=== PATIENT | female | born 1980 | race Caucasian/White ===

== ENCOUNTER 2021-03-05 20:45 | Emergency (ER) | payer MEDICAID, SELFPAY ==
[2021-03-05 20:58] VITALS: BP 160/104; PULSE 85; RESP 18; TEMP 37; O2SAT 99
--- NOTE | 2021-03-05 21:27 | ED.GENADUL_ITS ---
Discharge Plan Disposition Patient Disposition: HOME Condition: Stable Discharge Details Clinical Impression: Infected dental caries Primary Care Provider: Malka Zavala ED Provider: Barbara Shay Home Meds and New Rx's Prescriptions: New penicillin V potassium 250 mg/5 mL recon soln 500 mg PO QID 7 Days Qty: 280 RF: 0 Discharge Instructions Instructions: Dental Caries (ED) Additional Instructions: Drink plenty of fluids and get plenty of rest. Alternate tylenol and motrin as needed and directed for pain. You are being sent home with a pain medication called tramadol. Take this as needed and directed for pain. A prescription for antibiotics has been sent electronically to your pharmacy. Take this as directed until finished. Call your dentist tomorrow to see if they schedule you for an earlier appointment. Discharge Data Discharge Physician: Barbara Shay Medical Decision Making 40-year-old female presents with left upper dental pain for the past several days. She has dental caries throughout. She has tenderness palpation to the left upper most posterior tooth with surrounding mild to moderate mucosal edema and erythema but no abscess noted. Patient appears significantly uncomfortable but nontoxic. No drooling, trismus, or submandibular swelling. Will give antibiotics for potential developing dental infection. She states she cannot swallow pills. She was given a dose of Pen-Vee K suspension here and prescription sent electronically to her pharmacy. She was also given a dose of tramadol here and tabs to go. She was advised to call her dentist tomorrow to see if they can fit her in for an earlier appointment. Usual and customary return precautions given prior to discharge. Medical Records Medical records reviewed: Yes I reviewed the patient's medical records. HPI General Mode of arrival: ambulatory . Date/Time Provider Initiated Documentation: 03/05/21 21:27 . Limitations to Documentation: no limitations . Information obtained by: patient . HPI Narrative: Patient is a 40-year-old female who presents to the ED with complaint of left upper dental pain for the past several days. She states she fractured the tooth a few years ago but has been bothering her for the past few days. She has an appointment with [facility] next week. She has been trying [id number] pain remedies without relief. She denies any known fever, difficulty swallowing or breathing. Related Data Home Medications Medication Instructions Recorded Confirmed penicillin V potassium 500 mg PO QID 7 Days #280 ml 03/05/21 Previous Rx's Medication Instructions Recorded penicillin V potassium 500 mg PO QID 7 Days #280 ml 03/05/21 Allergies Allergy/AdvReac Type Severity Reaction Status Date / Time No Known Allergies Allergy Unverified 03/05/21 21:00 General Stated Complaint: DentalOral ELFEGO: 4 Review of Systems All systems reviewed & are unremarkable except as noted in HPI and below Constitutional Constitutional: Reports as per HPI, Denies chills and Denies fever(s) Eyes Eyes: Denies blurry vision ENT Ears, Nose, Mouth, and Throat: Reports dental pain, Denies dizziness, Denies sore throat and Denies throat swelling Cardiovascular Cardiovascular: Denies chest pain and Denies dyspnea Respiratory Respiratory: Denies cough and Denies dyspnea Gastrointestinal Gastrointestinal: Denies abdominal pain, Denies diarrhea and Denies vomiting Genitourinary Genitourinary: Denies hematuria and Denies dysuria Musculoskeletal Musculoskeletal: Denies back pain and Denies numbness Integumentary/Breasts Skin/Breast: Denies lesions and Denies rash Neurologic Neurologic: Denies dizziness, Denies localized weakness and Denies numbness Allergic/Immunologic Allergic/Immunologic: Denies throat swelling [facility] Surgical History (Updated 03/05/21 @ 22:17 by Barbara Shay DO) History of bilateral tubal ligation Social History Smoking/Tobacco Use Status: Never Smoking risk assessment performed?: Yes Alcohol Intake: never Drug use: Never Substance use type: does not use Do you feel safe at home: Yes Do you feel safe in your relationship?: Yes Exam Const General: cooperative, healthy appearing and no acute distress [facility] Head: normal to inspection Ears: hearing grossly normal bilaterally and external ears normal General nose exam: external nose normal Mouth: oral mucosae normal, no drooling and no trismus Teeth and gingiva: caries and other Teeth image: 1. Left upper dental tenderness. There is mild to moderate edema and erythema of the mucosa surrounding L upper posterior teeth. No dental abscess noted. Throat: posterior oropharynx normal Eyes General: appearance normal, both eyes and all related structures Neck Neck: normal visual inspection, no meningeal signs, trachea midline, supple, no anterior neck swelling and No submandibular swelling Resp Effort & Inspection: normal respiratory effort and able to speak in complete sentences Cardio Rate: regular rate Skin General skin exam: no rashes or lesions noted Neuro General: patient alert, patient awake and patient oriented x3 Motor: muscle tone normal throughout Psych Appearance: grossly normal Affect: normal affect Course Vital Signs Vital signs: Vital Signs Temperature 98.6 F 03/05/21 20:58 Pulse 85 03/05/21 20:58 Respiratory Rate 18 03/05/21 20:58 Blood Pressure 160/104 H 03/05/21 20:58 Pulse Oximetry 99 03/05/21 20:58 Temperature 98.6 F 03/05/21 20:58 Temperature Source Skin 03/05/21 20:58 Pulse 85 03/05/21 20:58 Respiratory Rate 18 03/05/21 20:58 Respiratory Effort Non-Labored 03/05/21 21:00 Blood Pressure 160/104 H 03/05/21 20:58 Pulse Oximetry 99 03/05/21 20:58 Oxygen Delivery Method Room Air 03/05/21 20:58 Oxygen Flow Rate 0 03/05/21 20:58 Pain Level 10 03/05/21 21:00
[2021-03-05] MEDS: traMADol 50 MG TAB PO (22:17)
== END 2021-03-05 23:28 | disposition home or self-care (01) ==
PROVIDERS: Emergency Provider Physician Assistant; PCP Family Medicine
DX: K04.7 Periapical abscess without sinus (principal)
CPT/HCPCS: 99283

== ENCOUNTER 2021-04-02 16:15 | Emergency (ER) | payer MEDICAID, SELFPAY ==
[2021-04-02 16:19] VITALS: BP 135/78; PULSE 89; RESP 16; TEMP 36.7; O2SAT 98
--- NOTE | 2021-04-02 16:36 | ED.GENADUL_ITS ---
Discharge Plan Disposition Patient Disposition: HOME Condition: Stable Discharge Details Clinical Impression: Infected dental caries Primary Care Provider: Malka Zavala ED Provider: Charo Mao Home Meds and New Rx's Prescriptions: New penicillin V potassium 500 mg tablet 500 mg PO QID 7 Days Qty: 28 RF: 0 Discharge Instructions Instructions: Dental Caries (ED) Additional Instructions: I am concerned that you have a recurrence of dental infection associated with your cavity. Please encourage hydration. Tylenol and/or ibuprofen as needed for discomfort. Please take the antibiotics as prescribed. Even if symptoms improve, please take the entire course. Please call local dentist to schedule follow-up appointment for definitive care. I am concerned that without definitive care your infection will likely return. If you develop increased swelling, fevers chills, radiation of pain or other new/worsening symptoms seek care urgently once again. Attached is a list of local dentist, in particular [facility] is excepting new patients. Referrals: Malka Zavala MD [Primary Care Provider] - Medical Decision Making Patient is a pleasant 40-year-old female presenting today with chief complaint of left lower dental pain. States that she began having some swelling yesterday. Was not having large amount of pain yesterday. However, woke today with increased pain, particularly with palpation, and swelling to the left lower side of her jaw. She denies any swelling, shortness of breath. No fevers or chills. States that it feels similar to when she was here recently with dental infection. Patient has not yet followed up with dentist. On exam, patient appears nontoxic. She does have some swelling along the left lower jaw. No erythema or fluctuance is noted. Tender to palpation. In the posterior left lower dentition, patient has 1 tooth and extracted in the posterior 1 to that, around the #17 tooth, is concerning for caries. On the buccal side, patient does have swelling and erythema. No area of fluctuance to suggest an abscess. No submandibular swelling, normal posterior oropharynx. No a ppreciable lymphadenopathy. Concern the patient has recurrence of her dental caries and dental infection. Advised that she will need definitive care with a dentist. States she has not had to take pills. Did well with penicillin VK last time. Encourage hydration, Tylenol and/or ibuprofen as needed for discomfort. List of local dentist was given. Return precautions were discussed. All of her questions and concerns were addressed and she is agreement this plan. HPI General Mode of arrival: ambulatory . Date/Time Provider Initiated Documentation: 04/02/21 16:26 . Limitations to Documentation: no limitations . Information obtained by: patient and RN notes reviewed . History of Present Illness 40 year old F presents to the emergency department with the chief complaint of left lower dental pain and swelling, described as moderate and similar to prior episodes, Quality is described as aching, and is localized to the mouth. Patient reports no radiation. Patient started experiencing this day(s) (1) and it has been constant. Immobilization improves symptom(s), Movement worsens symptoms (and palpation) . Patient notes no other symptoms.. Patient did receive the following treatments prior to arrival, none Related Data Home Medications Medication Instructions Recorded Confirmed penicillin V potassium 500 mg PO QID 7 Days #28 tab 04/02/21 Previous Rx's Medication Instructions Recorded penicillin V potassium 500 mg PO QID 7 Days #28 tab 04/02/21 Allergies Allergy/AdvReac Type Severity Reaction Status Date / Time acetaminophen [From Vicodin] Allergy Unverified 04/02/21 16:23 hydrocodone [From Vicodin] Allergy Unverified 04/02/21 16:23 General Stated Complaint: DentalOral ELFEGO: 5 Review of Systems Constitutional Constitutional: Reports as per HPI, Denies chills, Denies fatigue, Denies fever(s) and Denies headache(s) ENT Ears, Nose, Mouth, and Throat: Reports as per HPI, Reports dental pain, Denies dysphagia, Denies otalgia, Reports facial pain, Denies headache(s), Denies hoarseness, Denies odynophagia and Denies sore throat Respiratory Respiratory: Reports as per HPI and Denies cough Gastrointestinal Gastrointestinal: Reports as per HPI, Denies dysphagia and Denies odynophagia Integumentary/Breasts Skin/Breast: Reports as per HPI, Denies erythema, Denies rash and Denies skin pain Neurologic Neurologic: Reports as per HPI and Denies headache(s) Endocrine Endocrine: Denies fatigue [facility] Active Problem List (Updated 04/02/21 @ 16:38 by CASTILLO Baca) Infected dental caries (Acute) Surgical History History of bilateral tubal ligation Social History Smoking/Tobacco Use Status: Never Smoking risk assessment performed?: Yes Alcohol Intake: never Drug use: Never Substance use type: does not use Do you feel safe at home: Yes Do you feel safe in your relationship?: Yes Exam Const General: cooperative, healthy appearing, comfortable, no acute distress, well developed and well groomed Nutritional Appearance: average body habitus and well nourished Orientation: alert and awake [facility] Head: normal to inspection, normocephalic and atraumatic Ears: hearing grossly normal bilaterally, external ears normal and TM normal on the left General nose exam: external nose normal and nares normal Face and sinus: sinuses nontender and face asymmetric (swelling left lower jaw. No erythema, no fluctuance) Mouth: oral mucosae normal, lip normal, tongue normal, no muffled voice, no trismus and No restricted motion Teeth and gingiva: caries (#17, area of pain, swelling, redness along bucal side. No fluctuance) Throat: posterior oropharynx normal, tonsils normal and uvula midline Eyes General: appearance normal, both eyes and all related structures Neck Neck: normal visual inspection, full ROM, no lymphadenopathy, supple and no anterior neck swelling Resp Effort & Inspection: normal respiratory effort, able to speak in complete sentences and no respiratory distress Skin General skin exam: no rashes or lesions noted Trauma: no lacerations or abrasions Neuro General: patient alert and patient awake Cognition: normal cognition Speech: speech normal Gait: normal gait Psych Appearance: grossly normal and well kempt Mental Status: mental status grossly normal Speech and Movement: speech and movement normal Course Vital Signs Vital signs: Vital Signs Temperature 36.7 C 04/02/21 16:19 Pulse 89 04/02/21 16:19 Respiratory Rate 16 04/02/21 16:19 Blood Pressure 135/78 04/02/21 16:19 Pulse Oximetry 98 04/02/21 16:19 Temperature 36.7 C 04/02/21 16:19 Temperature Source Skin 04/02/21 16:19 Pulse 89 04/02/21 16:19 Respiratory Rate 16 04/02/21 16:19 Respiratory Effort 04/02/21 16:24 Blood Pressure 135/78 04/02/21 16:19 Blood Pressure Position Sitting 04/02/21 16:19 Pulse Oximetry 98 04/02/21 16:19 Oxygen Delivery Method Room Air 04/02/21 16:19 Oxygen Flow Rate 0 04/02/21 16:19 Pain Level 0 04/02/21 16:19 Comment 04/02/21 16:19
== END 2021-04-02 16:50 | disposition home or self-care (01) ==
LOC: ER 17:57
PROVIDERS: Emergency Provider Physician Assistant; PCP Family Medicine
DX: K04.7 Periapical abscess without sinus (principal); K02.9 Dental caries, unspecified
CPT/HCPCS: 99283

== ENCOUNTER 2021-09-11 08:37 | Emergency (ER) | payer MEDICAID, SELFPAY ==
[2021-09-11 09:12] VITALS: BP 135/80; PULSE 94; RESP 18; TEMP 37.3; O2SAT 100
--- NOTE | 2021-09-11 09:39 | ED.GENADUL_ITS ---
Discharge Plan Disposition Patient Disposition: HOME Condition: Stable Discharge Details Clinical Impression: Infected dental caries Primary Care Provider: Malka Zavala ED Provider: Cedric Burr Home Meds and New Rx's Prescriptions: Continued penicillin V potassium 500 mg tablet 500 mg PO QID 7 Days Qty: 28 0RF Discharge Instructions Instructions: Dental Caries (ED) Additional Instructions: At this time you have a dental infection of your left lower molar. It is important that you take the prescribed antibiotics for the full 7 days and please contact the dentist for follow-up after your antibiotics have finished unless directed otherwise by dental office. It will be important for you to discuss with them potential removal of the infected tooth that has significant decay and high reoccurrence of infection. You may continue to use [id number] pain medication as needed for discomfort and if not improving in the next 48 hours or have any significant worsening of symptoms as discussed please feel free to return to the emergency department. Discharge Data Discharge Date/Time-TO BE ENTERED AT DEPARTURE: 09/11/21 09:50 Medical Decision Making #17 Infected without signs of abscess, no signs of deep neck space infection ( Retropharyngeal abscess, Rishi's angina, Parapharyngeal space infection, Peritonsillar Abscess ([facility] [employer])) or Epiglottitis. Pt non toxic and stable. Patient placed on antibiotics and encouraged to follow-up with primary care and dental provider for reassessment. After discussion of diagnosis and plan of care patient has no further needs, questions, or concerns and states clear understanding to return to the emergency department for any worsening symptoms. HPI General Mode of arrival: ambulatory . Date/Time Provider Initiated Documentation: 09/11/21 09:23 . Limitations to Documentation: no limitations . Information obtained by: patient, RN notes reviewed and old records reviewed . History of Present Illness 40 year old F presents to the emergency department with the chief complaint of Dental pain/facial sweling, described as moderate, with intensity rated at 6. Quality is described as sharp, and is localized to the mouth. Patient reports no radiation. Patient started experiencing this day(s) (1) and it has been constant. improves with No relieving factors improve symptom(s), Patient notes no other symptoms.. Patient did receive the following treatments prior to arrival, NSAID Related Data Home Medications Medication Instructions Recorded Confirmed penicillin V potassium 500 mg 500 mg PO QID 7 Days #28 tab 09/11/21 tablet Previous Rx's Medication Instructions Recorded penicillin V potassium 500 mg 500 mg PO QID 7 Days #28 tab 09/11/21 tablet Allergies Allergy/AdvReac Type Severity Reaction Status Date / Time acetaminophen [From Vicodin] Allergy Unverified 04/02/21 16:23 hydrocodone [From Vicodin] Allergy Unverified 04/02/21 16:23 General Stated Complaint: DentalOral ELFEGO: 4 Review of Systems Constitutional Constitutional: Denies chills and Denies fever(s) ENT Ears, Nose, Mouth, and Throat: Reports as per HPI, Denies change in voice, Rep orts dental pain, Denies dysphagia, Denies throat swelling and Denies tongue swelling Cardiovascular Cardiovascular: Denies chest pain and Denies dyspnea Respiratory Respiratory: Denies dyspnea, Denies stridor and Denies wheezing Gastrointestinal Gastrointestinal: Denies abdominal pain, Denies dysphagia, Denies nausea and Denies vomiting Integumentary/Breasts Skin/Breast: Denies rash Allergic/Immunologic Allergic/Immunologic: Denies throat swelling, Denies tongue swelling and Denies wheezing PFSH All Active Problems Infected dental caries (Acute) Surgical History History of bilateral tubal ligation Social History Smoking/Tobacco Use Status: Never Smoking risk assessment performed?: Yes Alcohol Intake: never Drug use: Never Substance use type: does not use Do you feel safe at home: Yes Do you feel safe in your relationship?: Yes Exam Const General: cooperative Orientation: alert, awake and oriented x3 Limitations: mental status not altered [facility] [place] Head: normal to inspection, normocephalic and atraumatic Ears: hearing grossly normal bilaterally, normal mastoids bilaterally and no periauricular adenopathy General nose exam: external nose normal Mouth: oropharynx normal, no drooling, no muffled voice, normal tongue and no trismus Teeth and gingiva: caries, poor dentition and other (Dental decay #17 with erythema surrounding the base of the tooth) Throat: posterior oropharynx normal, tonsils normal and uvula midline Eyes General: appearance normal, both eyes and all related structures Pupils: PERRL Neck Neck: normal visual inspection, full ROM, no lymphadenopathy, no meningeal signs, trachea midline, supple, no anterior neck swelling and no midline deformity Resp Effort & Inspection: normal respiratory effort and able to speak in complete sentences Course Vital Signs Vital signs: Vital Signs Temperature 37.3 C 09/11/21 09:12 Pulse 94 H 09/11/21 09:12 Respiratory Rate 18 09/11/21 09:12 Blood Pressure 135/80 09/11/21 09:12 Pulse Oximetry 100 09/11/21 09:12 Temperature 37.3 C 09/11/21 09:12 Temperature Source Temporal Artery Scan 09/11/21 09:12 Pulse 94 H 09/11/21 09:12 Respiratory Rate 18 09/11/21 09:12 Blood Pressure 135/80 09/11/21 09:12 Blood Pressure Position Sitting 09/11/21 09:12 Pulse Oximetry 100 09/11/21 09:12 Oxygen Delivery Method Room Air 09/11/21 09:12 Oxygen Flow Rate 0 09/11/21 09:12
== END 2021-09-11 09:50 | disposition home or self-care (01) ==
PROVIDERS: Emergency Provider Nurse Practitioner Family; PCP Family Medicine
DX: K04.7 Periapical abscess without sinus (principal)
CPT/HCPCS: 99283

== ENCOUNTER 2022-04-20 15:05 | Emergency (ER) | payer MEDICAID, SELFPAY ==
[2022-04-20 15:14] VITALS: BP 129/82; PULSE 99; RESP 18; TEMP 36.9; O2SAT 97
--- NOTE | 2022-04-20 15:46 | ED.GENADUL_ITS ---
Discharge Plan Disposition Patient Disposition: Home Condition: Improving Discharge Details Chief Complaint: RespSymp Clinical Impression: COVID-19 Primary Care Provider: Malka Zavala ED Provider: Oscar Alvarez Discharge Instructions Instructions: Viral Syndrome (ED) Additional Instructions: Please follow-up with your primary care physician. Stand Alone Forms: Work Release Medical Decision Making 41-year-old female recently tested positive for COVID, has been ill for approximately 1 week body aches and dry cough. 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 Lungs clear bilaterally hemodynamically stable. Will dose dexamethasone for anti-inflammatory purposes. Given home care instructions and return precautions. Clinically stable low suspicion for superimposed bacterial pneumonia Sign Out No HPI General Date/Time Provider Initiated Documentation: 04/20/22 15:29 . HPI Narrative: 41-year-old female presents with body aches and dry cough over the past several days, tested positive for COVID. Related Data Allergies Allergy/AdvReac Type Severity Reaction Status Date / Time acetaminophen [From Vicodin] Allergy Unverified 04/20/22 15:16 hydrocodone [From Vicodin] Allergy Unverified 04/20/22 15:16 General Stated Complaint: RespSymp ELFEGO: 4 Review of Systems Narrative: Review of Systems Constitutional: Body aches Eyes: negative ENT: negative Cardiovascular: negative Respiratory: Cough Gastrointestinal: negative : negative Musculoskeletal: negative Skin: negative Neurologic: negative Psych: negative PFSH All Active Problems (Updated 04/20/22 @ 15:49 by Oscar Alvarez MD) COVID-19 (Acute) Infected dental caries (Acute) Surgical History History of bilateral tubal ligation Social History Smoking/Tobacco Use Status: Never Smoking risk assessment performed?: Yes Alcohol Intake: never Drug use: Never Substance use type: does not use Do you feel safe at home: Yes Do you feel safe in your relationship?: Yes Exam Narrative Exam Narrative: Physical Examination General: alert, awake, cooperative, resting comfortably, no acute distress HEENT: normocephalic, atraumatic; PERRL, EOM intact, conjunctiva normal; no nasal discharge; moist mucous membranes, oral and pharyngeal mucosa normal, tolerating secretions Neck: supple, trachea midline; full ROM Chest: normal to inspection Respiratory: normal respiratory effort, speaking in full sentences, clear to auscultation, no wheezing, rales or rhonchi Cardiac: regular rate, regular rhythm, S1S2 intact, no murmurs rubs or gallops GI: abdomen soft, non-tender, non-distended; no palpable mass or hepatosplenomegaly Skin: no lesions, rashes or trauma appreciated Neuro: AAOx3, normal speech, moving all extremities Psych: Appropriate mood and affect Course Vital Signs Vital signs: Vital Signs Temperature 36.9 C 04/20/22 15:14 Pulse 99 H 04/20/22 15:14 Respiratory Rate 18 04/20/22 15:14 Blood Pressure 129/82 04/20/22 15:14 Pulse Oximetry 97 04/20/22 15:14 Temperature 36.9 C 04/20/22 15:14 Pulse 99 H 04/20/22 15:14 Respiratory Rate 18 04/20/22 15:14 Respiratory Effort Non-Labored 04/20/22 15:17 Respiratory Depth Normal 04/20/22 15:17 Blood Pressure 129/82 04/20/22 15:14 Blood Pressure Position Sitting 04/20/22 15:14 Pulse Oximetry 97 04/20/22 15:14 Oxygen Delivery Method Room Air 04/20/22 15:14 Oxygen Flow Rate 0 04/20/22 15:14
[2022-04-20] MEDS: Dexamethasone 10 MG/ML VIAL IVP (16:09)
== END 2022-04-20 16:36 | disposition home or self-care (01) ==
PROVIDERS: Emergency Provider Emergency Medicine; PCP Family Medicine
DX: U07.1 COVID-19 (principal)
CPT/HCPCS: 99283; J1100

== ENCOUNTER 2022-04-27 14:44 | Emergency (ER) | payer MEDICAID, SELFPAY ==
[2022-04-27 15:18] VITALS: BP 137/94; PULSE 97; RESP 16; O2SAT 99
--- NOTE | 2022-04-27 17:15 | DI.RAD_ITS ---
Exam(s) XR CHEST 2V PA LATERAL EXAM: XR CHEST 2V PA LATERAL CLINICAL HISTORY: cough TECHNIQUE: 2D digital imaging was performed of the chest. Two images were obtained. PA and lateral views were obtained. COMPARISON: No exams were available for comparison FINDINGS: MEDIASTINUM: Normal. HEART: Normal. PULMONARY VASCULATURE: Normal. LUNGS: Clear. PLEURAL SPACE: No pleural effusion or pneumothorax. BONE:Within normal limits for the patient's age. OTHER FINDINGS:Normal. IMPRESSION: No acute pulmonary findings. DATA REPOSITORY: RADIATION DOSE DELIVERED:
[2022-04-27 17:18] VITALS: BP 115/70; PULSE 80; RESP 16; TEMP 36.8; O2SAT 98
--- NOTE | 2022-04-27 17:59 | DI.VRAD_ITS ---
PROCEDURE INFORMATION: Exam: XR Chest Exam date and time: 04/27/2022 5:41 PM Age: 41 years old Clinical indication: Other: Cough TECHNIQUE: Imaging protocol: Radiologic exam of the chest. Views: 2 views. COMPARISON: No relevant prior studies available. FINDINGS: Lungs: Unremarkable. No consolidation. Pleural spaces: Unremarkable. No pleural effusion. No pneumothorax. Heart/Mediastinum: Unremarkable. No cardiomegaly. Bones/joints: Anterior cervical fusion . No acute fracture IMPRESSION: No acute process Dictated and Authenticated by: Kofi Solomon MD. Ordering:NOEL Steele MD
--- NOTE | 2022-04-27 18:26 | ED.GENADUL_ITS ---
Discharge Plan Disposition Patient Disposition: Home Condition: Stable Discharge Details Clinical Impression: Bronchitis due to 2019-nCoV Primary Care Provider: Malka Zavala ED Provider: Cedric Burr Home Meds and New Rx's Prescriptions: New benzonatate 200 mg capsule 200 mg PO TID PRN (Reason: cough) Qty: 30 0RF Proair Digihaler 90 mcg/actuation aero powdr breath act w/sensor 90 mcg inhalation Q4H PRN (Reason: shortness of breath or wheezing) Qty: 1 0RF prednisone 20 mg tablet 40 mg PO DAILY Qty: 8 0RF Discharge Instructions Instructions: Acute Bronchitis (ED) Additional Instructions: At this time I do not feel that you have pneumonia or need antibiotic therapy. It is common after viral illness to have a prolonged cough. If you develop a new fever, worsening symptoms, or lack of improvement over the next week please follow-up with primary care provider or if emergent findings are present return to the emergency department. Please start the steroid tomorrow morning as it may cause insomnia and take medications as prescribed. Stand Alone Forms: Work Release Referrals: Malka Zavala MD [Primary Care Provider] - 1 week (If not improving) Discharge Data Discharge Date/Time-TO BE ENTERED AT DEPARTURE: 04/27/22 18:51 Medical Decision Making covid x 2 weeks with continued cough and not improving. No fever chills no productive cough. Continued malaise. Exam is unremarkable. Given continued symptoms we will perform chest x-ray. Differential diagnosis to include pneumonia versus bronchitis. Reviewed chest x-ray which is negative. We will treat patient with steroid, albuterol and Tessalon along with follow-up precautions if not improving in the next week. Imaging Data Radiologic Study: Attestation: I personally reviewed and interpreted this imaging study as follows: Imaging: X-Ray Radiologist's impression: Exam: XR Chest Exam date and time: 04/27/2022 5:41 PM Age: 41 years old Clinical indication: Other: Cough TECHNIQUE: Imaging protocol: Radiologic exam of the chest. Views: 2 views. COMPARISON: No relevant prior studies available. FINDINGS: Lungs: Unremarkable. No consolidation. Pleural spaces: Unremarkable. No pleural effusion. No pneumothorax. Heart/Mediastinum: Unremarkable. No cardiomegaly. Bones/joints: Anterior cervical fusion . No acute fracture IMPRESSION: No acute process Sign Out No HPI General Mode of arrival: ambulatory . Date/Time Provider Initiated Documentation: 04/27/22 15:46 . Limitations to Documentation: no limitations . Information obtained by: patient and RN notes reviewed . History of Present Illness 41 year old F presents to the emergency department with the chief complaint of cough, described as moderate, Quality is described as aching, and is localized to the chest. Patient started experiencing this week(s) (2) and it has been constant. No relieving factors improve symptom(s), No exacerbating factors reported . Patient notes cough; denies fever/chills and shortness of breath. Patient did receive the following treatments prior to arrival, none Related Data Home Medications Medication Instructions Recorded Confirmed albuterol sulfate 90 mcg/actuation 90 mcg inhalation Q4H PRN 04/27/22 breath activated powder shortness of breath or wheezing #1 inhaler,sensor (Proair Digihaler) ea benzonatate 200 mg capsule 200 mg PO TID PRN cough #30 caps 04/27/22 prednisone 20 mg tablet 40 mg PO DAILY #8 tabs 04/27/22 Previous Rx's Medication Instructions Recorded albuterol sulfate 90 mcg/actuation 90 mcg inhalation Q4H PRN 04/27/22 breath activated powder shortness of breath or wheezing #1 inhaler,sensor (Proair Digihaler) ea benzonatate 200 mg capsule 200 mg PO TID PRN cough #30 caps 04/27/22 prednisone 20 mg tablet 40 mg PO DAILY #8 tabs 04/27/22 Allergies Allergy/AdvReac Type Severity Reaction Status Date / Time acetaminophen [From Vicodin] Allergy Unverified 04/27/22 15:21 hydrocodone [From Vicodin] Allergy Unverified 04/27/22 15:21 General Stated Complaint: Recheck ELFEGO: 5 Review of Systems Constitutional Constitutional: Denies body ache(s), Denies chills, Denies fever(s), Denies headache(s) and Reports malaise Eyes Eyes: Denies eye discharge ENT Ears, Nose, Mouth, and Throat: Reports as per HPI, Denies ear discharge, Denies otalgia, Denies headache(s), Reports nasal congestion, Denies nasal discharge, Denies neck pain, Denies sore throat and Denies throat swelling Cardiovascular Cardiovascular: Denies chest pain and Denies dyspnea Respiratory Respiratory: Denies chest congestion, Reports cough, Reports pain with cough and Denies dyspnea Musculoskeletal Musculoskeletal: Denies joint swelling and Denies neck pain Integumentary/Breasts Skin/Breast: Denies rash Neurologic Neurologic: Denies headache(s) Allergic/Immunologic Allergic/Immunologic: Denies throat swelling PFSH All Active Problems (Updated 04/27/22 @ 18:28 by Cedric Burr NP) COVID-19 (Acute) Bronchitis due to 2019-nCoV (Acute) Infected dental caries (Acute) Surgical History History of bilateral tubal ligation Social History Smoking/Tobacco Use Status: Never Smoking risk assessment performed?: Yes Alcohol Intake: never Drug use: Never Substance use type: does not use Do you feel safe at home: Yes Do you feel safe in your relationship?: Yes Exam Const General: cooperative, comfortable and no acute distress Orientation: alert and awake HENNC Head: normal to inspection, normocephalic and atraumatic Ears: hearing grossly normal bilaterally and TM's normal bilaterally General nose exam: external nose normal Face and sinus: no erythema Mouth: oral mucosae normal, no drooling, no muffled voice and no trismus Throat: posterior oropharynx normal Neck Neck: normal visual inspection, full ROM, no lymphadenopathy, no meningeal signs, trachea midline and supple Resp Effort & Inspection: normal respiratory effort, able to speak in complete sentences and cough Quality of cough: dry Auscultation: clear to auscultation bilaterally Cardio Rate: regular rate Rhythm: regular rhythm Heart Sounds: S1 normal, S2 normal, normal S1 and S2, no click, no gallops, no murmurs and no rubs Skin General skin exam: no rashes or lesions noted and dry skin (warm) Neuro General: patient alert, patient awake, patient oriented x3, gait normal and moves all extremities Cognition: normal cognition Speech: speech normal Course Vital Signs Vital signs: Vital Signs Pulse 97 H 04/27/22 15:18 Respiratory Rate 16 04/27/22 15:18 Blood Pressure 137/94 H 04/27/22 15:18 Pulse Oximetry 99 04/27/22 15:18 Temperature 36.8 C 04/27/22 17:18 Temperature Source Oral 04/27/22 17:18 Pulse 80 04/27/22 17:18 Respiratory Rate 16 04/27/22 17:18 Respiratory Effort 04/27/22 17:50 Respiratory Depth Normal 04/27/22 17:50 Blood Pressure 115/70 04/27/22 17:18 Blood Pressure Position Sitting 04/27/22 15:18 Pulse Oximetry 98 04/27/22 17:18 Oxygen Delivery Method Room Air 04/27/22 17:18 Oxygen Flow Rate 0 04/27/22 17:18 Pain Level 0 04/27/22 15:18
[2022-04-27 18:53] VITALS: BP 121/80; PULSE 85; RESP 16; TEMP 36.5; O2SAT 99
== END 2022-04-27 18:51 | disposition home or self-care (01) ==
PROVIDERS: Emergency Provider Nurse Practitioner Family; PCP Family Medicine
DX: U07.1 COVID-19 (principal); J40 Bronchitis, not specified as acute or chronic
CPT/HCPCS: 99283; 71046; 99284

== ENCOUNTER 2022-11-21 21:01 | Emergency (ER) | payer MEDICAID, SELFPAY ==
[2022-11-21 21:04] VITALS: BP 127/81; PULSE 77; RESP 20; TEMP 36.6; O2SAT 100
[2022-11-21] MEDS: Ondansetron O.D.T. 4 MG TABEF PO (21:15)
--- NOTE | 2022-11-21 21:58 | ED.GENADUL_ITS ---
Discharge Plan Disposition Patient Disposition: Home Condition: Stable Discharge Details Clinical Impression: UTI (urinary tract infection), Heat exhaustion Primary Care Provider: Malka Zavala ED Provider: Purvi Grimes Home Meds and New Rx's Prescriptions: New cephalexin 500 mg tablet 500 mg PO BID 7 Days Qty: 14 0RF No Action benzonatate 200 mg capsule 200 mg PO TID PRN (Reason: cough) Qty: 30 0RF Proair Digihaler 90 mcg/actuation aero powdr breath act w/sensor 90 mcg inhalation Q4H PRN (Reason: shortness of breath or wheezing) Qty: 1 0RF prednisone 20 mg tablet 40 mg PO DAILY Qty: 8 0RF Discharge Instructions Instructions: Urinary Tract Infection in Women (ED), Heat Exhaustion (ED) Additional Instructions: Follow up with primary care provider in 3-5 days. Return to ED sooner if any worsening or concerns. Increase oral fluids. Please take Tylenol or Ibuprofen with food every 4-6 hours as needed for pain and swelling. Please take the nausea medication as directed 20-30 minutes prior to eating or drinking anything. Take the antibiotic with yogurt or a probiotic. Referrals: Malka Zavala MD [Primary Care Provider] - 5 days Medical Decision Making 42-year-old female presents to the ER with chief complaint of headache after being out all day on a 4 eas[place]. She reports that she went home was unable to urinate and had an episode of emesis. She also endorses chills. She denies any abdominal pain, no sore throat no ear pain no URI type symptoms. She did have a hot dog for lunch. Denies any sick contacts. Patient was given Zofran ODT in triage and was able to take a couple sips of water. CBC CMP lipase urinalysis. Liter of normal saline Toradol patient did receive Zofran ODT 4 mg prior to my evaluation. Differential diagnosis includes not limited to heat exhaustion, viral illness, food poisoning, URI, UTI migraine. Patient denies any possibility of due to previous tubal ligation. Labs are noted below. Patient does have slight white count 13, trace leukocytes. Patient given cephalexin to treat for UTI is also given Zofran. This text was generated using [employer] system, please disregard any oddities of phrase or misspellings. Lab Data Lab results reviewed: Yes I reviewed the patient's lab results. Labs: 11/21/22 23:02 Urine - Reflex from Ua Urine Culture - Pending Laboratory Tests Range/Units 11/21/22 11/21/22 11/21/22 22:28 22:28 23:02 WBC (4.4-10.8) 10^3/uL 13.19 H RBC (3.93-5.22) 10^6/uL 3.92 L Hgb (11.2-15.7) g/dL 10.6 L Hct (36.0-46.0) % 34.0 L MCV (80-95) fL 87 MCH (27.0-33.0) pg 27.0 MCHC (32.0-36.0) % 31.2 L RDW (11.7-14.6) % 13.2 Plt Count (130-400) 10^3/uL 345 MPV (8.0-11.0) fL 9.0 Immature Gran % 0.3 Neutrophils % 89.5 Lymphocytes % 6.4 Monocytes % 3.4 Eosinophils % 0.2 Basophils % 0.2 Nucleated RBC % (0.0-0.3) % 0.0 Absolute Neutrophils (1.2-6.7) 10^3/uL 11.81 H Absolute Lymphocytes (1.2-3.4) 10^3/uL 0.84 L Absolute Monocytes (0.1-0.8) 10^3/uL 0.45 Absolute Eosinophils (0.0-0.7) 10^3/uL 0.03 Absolute Basophils (0.0-0.2) 10^3/uL 0.03 Sodium (136-145) mmol/L 140 Potassium (3.5-5.1) mmol/L 3.9 Chloride (98-107) mmol/L 104 Carbon Dioxide (21.0-32.0) mmol/L 26.7 Anion Gap (3-11) mmol/L 9.3 BUN (7-18) mg/dL 6 L Creatinine (0.55-1.02) mg/dL 0.7 Est GFR (CKD-EPI 2020) (mL/min/1.73m2) 110.67 Glucose (74-106) mg/dL 177 H Calcium (8.5-10.1) mg/dL 8.5 Magnesium (1.8-2.4) mg/dL 1.9 Total Bilirubin (0.2-1.0) mg/dL 0.3 AST (15-37) U/L 14 L ALT (14-59) U/L 13 L Alkaline Phosphatase (46-116) U/L 97 Total Protein (6.4-8.2) g/dL 8.2 Albumin (3.4-5.0) g/dL 3.9 Lipase (16-77) U/L 31 Urine Color (Yellow) Yellow Urine Clarity (Clear) Clear Urine pH (5-8) 6.5 Ur Specific Topping (1.005-1.025) 1.010 Urine Protein (Negative) mg/dL Negative Urine Ketones (Negative) mg/dL Negative Urine Blood (Negative) Moderate H Urine Nitrite (Negative) Negative Urine Bilirubin (Negative) Negative Urine Urobilinogen (Up to 0.2) mg/dL 0.2 Ur Leukocyte Esterase (Negative) Trace H Urine RBC (0-2) HPF 3-5 H Urine WBC (0-5) HPF 3-5 Ur Epithelial Cells (Negative) HPF Rare Urine Crystals (Negative) HPF Negative Urine Bacteria (Negative) HPF Rare Urine Casts (Negative) LPF Negative Urine Mucus (Negative) Negative Ur Culture Indicated? Yes Urine Glucose (Negative) mg/dL Negative HPI General Mode of arrival: ambulatory . Date/Time Provider Initiated Documentation: 11/21/22 21:08 . Limitations to Documentation: no limitations . Information obtained by: patient, RN notes reviewed and old records reviewed . HPI Narrative: 42-year-old female presents to the ER with chief complaint of headache after be ing out all day on a 4 [place]. She reports that she went home was unable to urinate and had an episode of emesis. She also endorses chills. She denies any abdominal pain, no sore throat no ear pain no URI type symptoms. She did have a hot dog for lunch. Denies any sick contacts. Patient was given Zofran ODT in triage and was able to take a couple sips of water. Related Data Home Medications Medication Instructions Recorded Confirmed albuterol sulfate 90 mcg/actuation 90 mcg inhalation Q4H PRN 04/27/22 breath activated powder shortness of breath or wheezing #1 inhaler,sensor (Proair Digihaler) ea benzonatate 200 mg capsule 200 mg PO TID PRN cough #30 caps 04/27/22 prednisone 20 mg tablet 40 mg PO DAILY #8 tabs 04/27/22 cephalexin 500 mg tablet 500 mg PO BID 7 days #14 tabs 11/21/22 Previous Rx's Medication Instructions Recorded albuterol sulfate 90 mcg/actuation 90 mcg inhalation Q4H PRN 04/27/22 breath activated powder shortness of breath or wheezing #1 inhaler,sensor (Proair Digihaler) ea benzonatate 200 mg capsule 200 mg PO TID PRN cough #30 caps 04/27/22 prednisone 20 mg tablet 40 mg PO DAILY #8 tabs 04/27/22 cephalexin 500 mg tablet 500 mg PO BID 7 days #14 tabs 11/21/22 Allergies Allergy/AdvReac Type Severity Reaction Status Date / Time acetaminophen [From Vicodin] Allergy Unverified 04/27/22 15:21 hydrocodone [From Vicodin] Allergy Unverified 04/27/22 15:21 General Stated Complaint: GenMedical ELFEGO: 3 Review of Systems All systems reviewed & are unremarkable except as noted in HPI and below Constitutional Constitutional: Reports body ache(s), Reports chills and Reports headache(s) ENT Ears, Nose, Mouth, and Throat: Reports headache(s) Gastrointestinal Gastrointestinal: Reports nausea and Reports vomiting Genitourinary Genitourinary: Reports difficulty voiding Neurologic Neurologic: Reports headache(s) PFSH All Active Problems (Updated 11/21/22 @ 23:45 by Purvi Grimes NP) COVID-19 (Acute) Bronchitis due to 2019-nCoV (Acute) UTI (urinary tract infection) (Acute) Heat exhaustion (Acute) Infected dental caries (Acute) Surgical History History of bilateral tubal ligation Social History Smoking/Tobacco Use Status: Never Smoking risk assessment performed?: Yes Alcohol Intake: never Drug use: Never Substance use type: does not use Housing: house Do you feel safe at home: Yes Do you feel safe in your relationship?: Yes Exam Narrative Exam Narrative: Constitutional: Alert and oriented x3. Appears stated age. Normal body habitus. Head: Normocephalic, no trauma. Eyes: Pupils PERRL, Red reflex noted, EOM's intact. Eyelids symmetrical without lesions, discharge, or swelling. ENT: Bilateral TM's WNL, External ear normal to inspection, no mastoid TTP, swelling, or erythema, Nasal turbinates WNL, no nasal discharge. Normal dentition, Posterior pharynx WNL, no exudate. Chest: RRR, Normal S1, S2, distal pulses intact. Resp: Lungs clear to auscultation bilaterally, no wheezes, rales, or rhonchi. Abdomen: Soft, non-distended, Normoactive bowel sounds all 4 quads. Musculoskeletal: Normal gait, 5/5 strength to all four extremities. Skin: No suspicious rashes or lesions. Capillary refill less than 2 sec. Neurologic: Cranial nerves II-XII intact. Alert and oriented x 3. Motor: No def icits noted. Sensory: Intact bilaterally all 4 extremities. Reflexes: DTR's intact bilaterally.. Hematologic/Lymphatic: No ecchymosis, no lymphadenopathy. Course Vital Signs Vital signs: Vital Signs Temperature 36.6 C 11/21/22 21:04 Pulse 77 11/21/22 21:04 Respiratory Rate 20 11/21/22 21:04 Blood Pressure 127/81 11/21/22 21:04 Pulse Oximetry 100 11/21/22 21:04 Temperature 36.6 C 11/21/22 21:04 Temperature Source Temporal Artery Scan 11/21/22 21:04 Pulse 77 11/21/22 21:04 Respiratory Rate 20 11/21/22 21:04 Respiratory Effort Normal, Non-Labored 11/21/22 21:07 Blood Pressure 127/81 11/21/22 21:04 Pulse Oximetry 100 11/21/22 21:04 Oxygen Delivery Method Room Air 11/21/22 21:04 Oxygen Flow Rate 0 11/21/22 21:04 Pain Level 0 11/21/22 21:04
[2022-11-21 22:34] LABS: Abs Immature Grans 0.04 10^3/uL (0.0-0.06); Absolute Eosinophil Count 0.03 10^3/uL (0.0-0.7); Absolute Lymphocyte Count 0.84 10^3/uL (1.2-3.4); Absolute Monocyte Count 0.45 10^3/uL (0.1-0.8); Absolute Neutrophil Count 11.81 10^3/uL (1.2-6.7); Basophils % 0.2; Eosinophils % 0.2; HGB 10.6 g/dL (11.2-15.7); Immature Grans % 0.3; Lymphocytes % 6.4; MCHC 31.2 % (32.0-36.0); MCV 87 fL (80-95); Monocytes % 3.4; Neutrophils % 89.5; Platelet Count 345 10^3/uL (130-400); RBC 3.92 10^6/uL (3.93-5.22); RDW 13.2 % (11.7-14.6); RDW-SD 41.7 fL; WBC 13.19 10^3/uL (4.4-10.8)
[2022-11-21 22:52] LABS: Absolute Basophil Count 0.03 10^3/uL (0.0-0.2)
[2022-11-21] MEDS: Ketorolac 15 MG/ML VIAL IVP (23:00)
[2022-11-21 23:03] LABS: ALT 13 U/L (14-59); AST 14 U/L (15-37); Albumin 3.9 g/dL (3.4-5.0); Alkaline Phosphatase 97 U/L (46-116); Anion Gap 9.3 mmol/L (3-11); BUN 6 mg/dL (7-18); Bilirubin, Total 0.3 mg/dL (0.2-1.0); CO2 26.7 mmol/L (21.0-32.0); CREATININE 0.7 mg/dL (0.55-1.02); Calcium 8.5 mg/dL (8.5-10.1); Chloride 104 mmol/L (98-107); Estimated GFR 110.67 (mL/min/1.73m2); Glucose 177 mg/dL (74-106); Lipase 31 U/L (16-77); Magnesium 1.9 mg/dL (1.8-2.4); Potassium 3.9 mmol/L (3.5-5.1); Sodium 140 mmol/L (136-145); Total Protein 8.2 g/dL (6.4-8.2)
[2022-11-21 23:08] LABS: Bilirubin Negative (Negative); Blood Moderate (Negative); Clarity Clear (Clear); Glucose Negative (Negative); Ketones Negative (Negative); Leukocyte Esterase Trace (Negative); Nitrite Negative (Negative); Urobilinogen 0.2 mg/dL (Up to 0.2); pH 6.5 (5-8)
[2022-11-21] MEDS: Normal Saline 1,000 ML 1000 ML IV (23:08)
[2022-11-21 23:11] LABS: Bacteria Rare HPF (Negative); Epithelial Cells Rare HPF (Negative)
[2022-11-21 23:12] LABS: C & S Indicated? Yes; Casts Negative LPF (Negative); Crystals Negative HPF (Negative); Mucus Negative (Negative)
[2022-11-21] MEDS: Ondansetron O.D.T. 4 MG TABEF, 3 TABS/BTL PO (23:56)
[2022-11-21] MEDS: Cephalexin 500 MG CAP, 2 CAPS/BTL PO (23:56)
[2022-11-21 23:59] VITALS: RESP 20
== END 2022-11-22 00:11 | disposition home or self-care (01) ==
PROVIDERS: Emergency Provider Registered Nurse Emergency; PCP Family Medicine
DX: T67.5XXA Heat exhaustion, unspecified, initial encounter (principal); N39.0 Urinary tract infection, site not specified; X58.XXXA Exposure to other specified factors, initial encounter
CPT/HCPCS: 80053; 83690; 96374; 99283; 81003; 81015; 83735; 85025; 87086; J1885

== ENCOUNTER 2023-11-14 16:36 | Emergency (ER) | payer SELFPAY ==
[2023-11-14 16:51] VITALS: BP 144/78; PULSE 87; RESP 16; TEMP 37.3; O2SAT 98
--- NOTE | 2023-11-14 17:45 | DI.RAD_ITS ---
Exam(s) XR SHOULDER LT COMPLETE 2+V EXAM: XR SHOULDER LT COMPLETE 2+V CLINICAL HISTORY: left shoulder pain. TECHNIQUE: 2D digital imaging was performed. COMPARISON: No exams were available for comparison FINDINGS: Five views. No evidence of fracture or dislocation or abnormal soft tissue calcifications. Subacromial space mala ears unremarkable. Bone density normal. No osseous lesions. No degenerative changes. Ipsilateral clavicle appears intact. IMPRESSION: No significant osseous findings in the shoulder. Incidentally noted is fusion hardware in the cervical spine. DATA REPOSITORY: RADIATION DOSE DELIVERED:
[2023-11-14] MEDS: predniSONE 20 MG TAB 40 MG PO (19:06)
--- NOTE | 2023-11-14 19:38 | DI.VRAD_ITS ---
PROCEDURE INFORMATION: Exam: XR Left Shoulder Exam date and time: 11/14/2023 6:11 PM Age: 43 years old Clinical indication: Patient HX: Left shoulder pain TECHNIQUE: Imaging protocol: Radiologic exam of the left shoulder. Views: 2 or more views. COMPARISON: CR XR CHEST 2V PA LATERAL 04/27/2022 5:41 PM FINDINGS: Bones/joints: Normal. Soft tissues: Normal. IMPRESSION: No acute findings. Dictated and Authenticated by: Jaylen Callahan MD. Ordering:TIN Klein MD
--- NOTE | 2023-11-14 22:38 | ED.GENADUL_ITS ---
Discharge Plan Disposition Patient Disposition: Home Condition: Stable Discharge Details Clinical Impression: Left shoulder strain Primary Care Provider: Unknown,Unknown ED Provider: Latoya Mcfarland Home Meds and New Rx's Prescriptions: New methylprednisolone [Medrol (John)] 4 mg tablets,dose pack See Rx Instructions .ROUTE .COMPLEX Qty: 21 0RF Rx Instructions: for 6 days cyclobenzaprine 10 mg tablet 10 mg PO TID PRNQty: 10 0RF Discharge Instructions Instructions: Muscle Strain (DC) Additional Instructions: Take the Medrol as prescribed, Tylenol 650 every 6 hours Take the Flexeril for musculoskeletal pain, do not take it if you need to drive within 8 hours of taking this medication Continue to range her shoulder without repetitive motion or lifting more than 5 pounds so that it does not become frozen and follow-up with physical therapy And placing on light duty for work Please return should you have new or worsening complaints Stand Alone Forms: Physical Therapy Referral, Work Release Discharge Data Discharge Date/Time-TO BE ENTERED AT DEPARTURE: 11/14/23 19:09 HPI General Date/Time Provider Initiated Documentation: 11/14/23 17:41 . HPI Narrative: This 43-year-old female presents with 1 week of left shoulder pain. 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 Patient denies any additional complaints. She denies any chest pain or shortness of breath. She states the pain is exacerbated with movement of her left shoulder. She denies any neck pain or strength or sensation change. Denies any chance of . Related Data Home Medications Medication Instructions Recorded Confirmed cyclobenzaprine 10 mg tablet 10 mg PO TID PRN #10 tabs 11/14/23 methylprednisolone 4 mg tablets in See Rx Instructions PO .COMPLEX 11/14/23 a dose pack (Medrol (John)) #21 dose pk Previous Rx's Medication Instructions Recorded cyclobenzaprine 10 mg tablet 10 mg PO TID PRN #10 tabs 11/14/23 methylprednisolone 4 mg tablets in See Rx Instructions PO .COMPLEX 11/14/23 a dose pack (Medrol (John)) #21 dose pk Allergies Allergy/AdvReac Type Severity Reaction Status Date / Time hydrocodone [From Vicodin] Allergy Hives Unverified 11/14/23 16:55 General Stated Complaint: Orthopedic ELFEGO: 4 Exam Narrative Exam Narrative: Left shoulder with tenderness, positive empty can, neurovascularly intact, no cervical spine tenderness, no obvious swelling or visible deformity Course Vital Signs Vital signs: Vital Signs Temperature 37.3 C 11/14/23 16:51 Pulse 87 11/14/23 16:51 Respiratory Rate 16 11/14/23 16:51 Blood Pressure 144/78 H 11/14/23 16:51 Pulse Oximetry 98 11/14/23 16:51 Temperature 37.3 C 11/14/23 16:51 Pulse 87 11/14/23 16:51 Respiratory Rate 16 11/14/23 16:51 Respiratory Effort Normal 11/14/23 16:56 Blood Pressure 144/78 H 11/14/23 16:51 Pulse Oximetry 98 11/14/23 16:51 Pain Level 10 11/14/23 16:51 Medical Decision Making Left shoulder x-ray per radiology interpretation my review does not show evidence of acute abnormality for this patient presenting with left shoulder pain with injury 1 week prior to arrival. Placed on restrictions for work. Referral to PCP supplied Medrol Dosepak and Flexeril as needed pain. Diclofenac gel, return precautions reviewed and patient expressed understanding. Quality:SDOH Health Related Social Needs: No Data to Display PFSH All Active Problems (Updated 11/14/23 @ 18:55 by CASTILLO Mohamud) Left shoulder strain (Acute) Bronchitis due to 2019-nCoV (Acute) COVID-19 (Acute) Infected dental caries (Acute) Surgical History History of bilateral tubal ligation Social History Smoking/Tobacco Use Status: Never Smoking risk assessment performed?: Yes Alcohol Intake: never Drug use: Never Substance use type: does not use Housing: house Do you feel safe at home: Yes Do you feel safe in your relationship?: Yes PAWSS Have you Been Recently Intoxicated or Drunk Within the Last 30 days?: Yes Have you Ever Experienced Previous Episodes of Alcohol Withdrawal?: No Have you ever Experienced Withdrawal Seizures?: No Have you ever Experienced Delirium Tremens(DT)s?: No Have you ever undergone Alcohol Rehabilitation Treatment (i.e, inpt ot outpatient treatment programs)?: No Have you ever Experienced Blackouts?: No Have you ever Combined Alcohol with other Downers within the last 90 days?: No Have you ever Combined Alcohol with any other Substance of Abuse during the last 90 days?: No Positive Blood Alcohol level on Presentation? [PCS.BAL]: No Evidence of Increased Autonomic Activity (i.e. HR>120, tremor, sweating, agitation, nausea)?: No Result: 1
== END 2023-11-14 19:09 | disposition home or self-care (01) ==
PROVIDERS: Emergency Provider Physician Assistant
DX: S43.402A Unspecified sprain of left shoulder joint, initial encounter (principal); X50.0XXA Overexertion from strenuous movement or load, initial encounter
CPT/HCPCS: 99283; 73030; 99284; J7512

== ENCOUNTER 2023-11-15 15:55 | Emergency (ER) | payer MEDICAID, SELFPAY ==
[2023-11-15 15:59] VITALS: BP 148/83; PULSE 88; RESP 16; TEMP 36.9; O2SAT 96
--- NOTE | 2023-11-15 16:05 | W.ED.GENAD ---
Discharge Plan Disposition Patient Disposition: Home Discharge Details Clinical Impression: Sprain of left shoulder Primary Care Provider: Unknown,Unknown ED Provider: Leonard Alcantar Home Meds and New Rx's Prescriptions: New ketorolac 10 mg tablet 10 mg PO QID PRN (Reason: pain) Qty: 20 0RF Rx Instructions: maximum total duration of 5 days from all oral, intranasal, or parenteral formulations Continued methylprednisolone [Medrol (John)] 4 mg tablets,dose pack See Rx Instructions .ROUTE .COMPLEX Qty: 21 0RF Rx Instructions: for 6 days cyclobenzaprine 10 mg tablet 10 mg PO TID PRNQty: 10 0RF Discharge Instructions Instructions: Ketorolac (Systemic), Shoulder Sprain ED Additional Instructions: You were seen in the emergency department for your continued left arm pain from workplace injury 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 I am providing a work note for a few more days off to rest your injury. Please follow-up with the physical therapy referral you were given at last night's visit. Please use the prescribed ketorolac in place of any Advil or Aleve, do not take 2 anti-inflammatories at the same time, use this 4 times per day for the next 5 days and then switch back to ibuprofen or Aleve in combination with Tylenol. Please follow-up with orthopedics should her pain persist past 2 weeks. Stand Alone Forms: Work Release Referrals: [facility] [Provider Group] Discharge Data Discharge Date/Time-TO BE ENTERED AT DEPARTURE: 11/15/23 16:24 HPI General Date/Time Provider Initiated Documentation: 11/15/23 16:03. HPI Narrative: 43 year-old female presents to ED today by POV/ambulating with a chief complaint of continued L arm pain- seen last night with negative XR- works at a care facility, injury from lifting/pushing/pulling patients. Quality described as pain down her whole left arm, here for new work note, no radiation to new trauma, complete numbness, ROM deficit, patient is R-hand dominant. Severity is described as severe. Palliating factors include taking Tylenol without relief. Provoking factors include nothing specific. Events leading up to the incident/Associated Symptoms: Patient requesting until Wednesday off. Patient not anticoagulated. Related Data Home Medications Medication Instructions Recorded Confirmed cyclobenzaprine 10 mg tablet 10 mg PO TID PRN #10 tabs 11/14/23 11/15/23 methylprednisolone 4 mg tablets in See Rx Instructions PO .COMPLEX 11/14/23 11/15/23 a dose pack (Medrol (John)) #21 dose pk ketorolac 10 mg tablet 10 mg PO QID PRN pain #20 tabs 11/15/23 Previous Rx's Medication Instructions Recorded cyclobenzaprine 10 mg tablet 10 mg PO TID PRN #10 tabs 11/14/23 methylprednisolone 4 mg tablets in See Rx Instructions PO .COMPLEX 11/14/23 a dose pack (Medrol (John)) #21 dose pk ketorolac 10 mg tablet 10 mg PO QID PRN pain #20 tabs 11/15/23 Allergies Allergy/AdvReac Type Severity Reaction Status Date / Time hydrocodone [From Vicodin] Allergy Hives Unverified 11/14/23 16:55 General Stated Complaint: Orthopedic ELFEGO: 4 Review of Systems All systems reviewed & are unremarkable except as noted in HPI and below Exam Narrative Exam Narrative: GENERAL APPEARANCE: Well-nourished, non-toxic, awake and alert, atraumatic, no acute distress. SKIN: Warm, pink, dry, intact, without rashes/lesions/ulcerations. HEAD: Normocephalic, atraumatic, normal hair distribution for gender/age. EYES: Pupils PERRLA, EOMs intact without nystagmus, normal conjunctiva, no exudates on lids/lashes. ENT: Nares patent, no circumoral cyanosis, no facial swelling NECK: Supple, trachea midline, painless cervical ROM. LUNGS/CHEST: Non-labored respirations, normal A/P diameter, symmetrical expansion, no chest wall deformity HEART (CV/PV): Regular rate, L radial pulse 2+, no peripheral edema, no JVD. ABDOMEN: Soft, non-distended, no guarding. MSK: Normal ROM, no swelling/deformity to bilateral UEs or LEs, moving all extremities without weakness, no cyanosis, spine midline without tenderness, normal curvature. L UE: Diffuse tenderness to the left arm without any skin changes, swelling, deformity, is able to use the arm in full range of motion, radial pulse 2+, sensation intact, no vertebral midline tenderness/crepitus or step-offs, negative empty can test, negative apprehension NEURO: Mental Status AAOx4 - alert to person, place, time, events No facial droop, no forehead involvement. Motor: No focal weakness - strength 5/5 in bilateral UEs and LEs, proximal and distal, symmetric. Sensory: sensation intact to light touch globally. Gait normal: patient ambulated without ataxia into ED room. PSYCH: euthymic, cooperative, pleasant, appropriate speech Course Vital Signs Vital signs: Vital Signs Temperature 36.9 C 11/15/23 15:59 Pulse 88 11/15/23 15:59 Respiratory Rate 16 11/15/23 15:59 Blood Pressure 148/83 H 11/15/23 15:59 Pulse Oximetry 96 11/15/23 15:59 Temperature 36.9 C 11/15/23 15:59 Pulse 88 11/15/23 15:59 Respiratory Rate 16 11/15/23 15:59 Blood Pressure 148/83 H 11/15/23 15:59 Pulse Oximetry 96 11/15/23 15:59 Oxygen Delivery Method Room Air 11/15/23 15:59 Oxygen Flow Rate 0 11/15/23 15:59 Pain Level 10 11/15/23 15:59 Medical Decision Making This dictation utilizes [id number] dictation software and may contain unedited grammatical errors. 43 year-old female presents to ED today by POV/ambulating with a chief complaint of continued L arm pain- seen last night with negative XR- works at a care facility, injury from lifting/pushing/pulling patients. Quality described as pain down her whole left arm, here for new work note, no radiation to new trauma, complete numbness, ROM deficit, patient is R-hand dominant. Severity is described as severe. Palliating factors include taking Tylenol without relief. Provoking factors include nothing specific. Events leading up to the incident/Associated Symptoms: Patient requesting until Wednesday off. Patients' medical history: noncontributory. Family and social history: noncontributory. Pertinent exam findings / vital signs include L arm NV intact, fruit buying grader strength 5/5, L radial pulse 2+, no midline vertebral tenderness, no swelling/deformity. Differential / pathologies of concern include Sprain/Strain, Rotator Cuff Arthropathy. Diagnostic studies of: -none, XR negative last night. Interventions of: -work note. ED Course/Assessment/Plan: 43-year-old female suffered a workplace sprain or strain type injury to her left arm from lifting/pushing/pulling patients at a care facility, is negative x-ray, was given ketorolac prescription at today's visit, had cyclobenzaprine from previous visit. Has not followed up with physical therapy, and is reporting no new trauma, no signs of complete neurovascular compromise and requesting a work note to be off until Wednesday which was provided to the patient I counseled on her need to follow-up with physical therapy and orthopedics as well as ED utilization and strict return criteria for any signs of neurovascular compromise of the left upper extremity. Findings not consistent with new trauma, neurovascular compromise, fracture. Disposition of sprain of left shoulder. Patient verbalized understanding of the plan and return to ED criteria and engaged in shared decision making. Medical Records Medical records reviewed: Yes I reviewed the patient's medical records. Quality:[facility] Health Related Social Needs: No Data to Display [facility] All Active Problems (Updated 11/15/23 @ 16:15 by CASTILLO Rodrigez) Sprain of left shoulder (Acute) Left shoulder strain (Acute) Bronchitis due to 2019-nCoV (Acute) COVID-19 (Acute) Infected dental caries (Acute) Surgical History History of bilateral tubal ligation Social History Smoking/Tobacco Use Status: Never Smoking risk assessment performed?: Yes Alcohol Intake: never Drug use: Never Substance use type: does not use Housing: house Do you feel safe at home: Yes Do you feel safe in your relationship?: Yes
[2023-11-15 16:23] VITALS: BP 147/85; PULSE 86; RESP 16; O2SAT 99
== END 2023-11-15 16:24 | disposition home or self-care (01) ==
PROVIDERS: Emergency Provider Physician Assistant
DX: S43.402A Unspecified sprain of left shoulder joint, initial encounter (principal); Y99.0 Civilian activity done for income or pay; X50.0XXA Overexertion from strenuous movement or load, initial encounter
CPT/HCPCS: 99283

== ENCOUNTER 2024-01-06 11:51 | Emergency (ER) | payer MEDICAID, SELFPAY ==
[2024-01-06 11:59] VITALS: BP 137/97; PULSE 75; RESP 16; TEMP 36.9; O2SAT 98
[2024-01-06] MEDS: Methocarbamol 500 MG TAB 1000 MG PO (12:46)
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
== END 2024-01-06 12:53 | disposition home or self-care (01) ==
PROVIDERS: Emergency Provider Emergency Medicine
DX: M25.512 Pain in left shoulder (principal)
CPT/HCPCS: 99283; 99284

== ENCOUNTER 2024-02-25 00:15 | Outpatient (CLI) | payer MEDICAID, SELFPAY ==
--- NOTE | 2024-02-25 06:30 | DI.MRI_ITS ---
Exam(s) MR UPPER JOINT LT WO EXAM: MR UPPER JOINT LT WO CLINICAL HISTORY: ? ROTATOR CUFF TEAR,lt, lt shoulder pain,m25.512,s46.912a TECHNIQUE: Multiplanar multisequence MRI of the shoulder was performed. COMPARISON: CR,XR XR SHOULDER LT COMPLETE 2+V from 11/14/2023 FINDINGS: MARROW:There is no evidence of fracture, Hill-Sachs deformity, nor ominous osseous lesions. GLENOHUMERAL JOINT: No joint effusion nor obvious loose intra-articular bodies. No chondral defects. No osteophytes. No degenerative subarticular cysts. No evidence of capsular tear. ROTATOR CUFF MECHANISM: AC JOINT/ACROMIUM: There are no obvious degenerative changes at the AC joint level. The a chromium i s slightly downsloping.. There is no evidence of os acromiale. Supraspinatus: There is mild tendinitis signal. No high-grade tear. No atrophy. Infraspinatus: Intact. No evidence of tear nor muscle atrophy. Teres Minor: Intact. No evidence of tear nor muscle atrophy. Subscapularis/anterior cuff: Intact. No abnormal signal at the level of the multipennate insertional fibers. No significant tear nor atrophy. BICEPS TENDON: Exhibits normal position within the intertubercular groove. No evidence of tear. No tenosynovitis. LABRUM: There are no obvious labral tears nor evidence of paralabral cyst. QUADRILATERAL SPACE: No evidence of mass in the region of the axillary nerve and dorsal circumflex hu meral vessels. Visualized triceps muscle at this level appears unremarkable. IMPRESSION: 1. Mild tendinitis findings in the supraspinatus. No high-grade tear. No muscle atrophy 2. Other muscles of the rotator cuff mechanism appear unremarkable. 3. No labral tears evident and biceps tendon appears intact. 4. There are no degenerative changes in the glenohumeral and AC joints. No loose intra-articular phil dies nor joint effusion. Mildly downsloping acromium noted. DATA REPOSITORY:
== END 2024-02-25 00:35 ==
LOC: DI 00:16
PROVIDERS: Visit Provider Student in an Organized Health Care Education/Training Program
DX: M25.512 Pain in left shoulder (principal)
CPT/HCPCS: 73221

== ENCOUNTER 2024-05-08 02:34 | Outpatient (CLI) | payer MEDICAID, SELFPAY ==
[2024-05-08 08:16] LABS: ALT 9 U/L (14-59); AST 10 U/L (15-37); Albumin 3.4 g/dL (3.4-5.0); Alkaline Phosphatase 96 U/L (46-116); Anion Gap 7.7 mmol/L (3-11); BUN 10 mg/dL (7-18); Bilirubin, Total 0.27 mg/dL (0.2-1.0); CO2 25.3 mmol/L (21.0-32.0); CREATININE 0.8 mg/dL (0.55-1.02); Calcium 8.2 mg/dL (8.5-10.1); Calculated LDL 113 mg/dL (<100); Chloride 107 mmol/L (98-107); Cholesterol 178 mg/dL (<200); Glucose 99 mg/dL (74-106); HDL Cholesterol 52 mg/dL (40-60); Potassium 4.1 mmol/L (3.5-5.1); Sodium 140 mmol/L (136-145); Total Protein 7.7 g/dL (6.4-8.2); Triglyceride 68 mg/dL (<150)
== END 2024-05-08 02:35 | disposition home or self-care (01) ==
LOC: LBO 02:34
PROVIDERS: PCP Family Medicine; Referring Provider Family Medicine; Visit Provider Family Medicine
DX: Z13.6 Encounter for screening for cardiovascular disorders (principal)
CPT/HCPCS: 36415; 80053; 80061

== ENCOUNTER 2024-05-22 10:51 | Outpatient (REF) | payer MEDICAID, SELFPAY ==
--- NOTE | 2024-05-22 10:30 | PAPFT_PTH ---
PATIENT: Otilia Lopez LOC: [facility] U#:[id number] AGE/SX: 43/F ROOM: RE05/22/[address]: Sirena Harrington NP : 1980 BED: DIS: 05/22/2024 SPEC #: [id number] RECD: 05/22/24 12:55 STATUS: MARTIN REBuffy #: [id number] YURIDIA: 05/22/24 10:[address]: Sirena Harrington NP DEPT: [facility] Cytology RECD BY: Latoya Manning ENTERED: 05/22/24 12:55 SP TYPE: PAPFT OTHR DR: Junior Gannon, DO Tissues: 1 - CX/ENDOCX FOR PAP SMEARS Procedures: PAP THIN PREP/UVM Screening HPV DNA PROBE Comments: [id number] (HPV 16 7 18/45) (CHLAMYDIA/GC)
[2024-05-23 12:46] LABS: Chlamydia Result Negative (Negative); GC Result Negative (Negative)
== END 2024-05-22 10:52 | disposition home or self-care (01) ==
LOC: LBN 10:51
PROVIDERS: PCP Family Medicine; Visit Provider Nurse Practitioner Women's Health
DX: Z11.3 Encounter for screening for infections with a predominantly sexual mode of transmission (principal); Z12.4 Encounter for screening for malignant neoplasm of cervix; Z12.31 Encounter for screening mammogram for malignant neoplasm of breast; N77.1 Vaginitis, vulvitis and vulvovaginitis in diseases classified elsewhere
CPT/HCPCS: 87491; 87591; 88142; 87624

== ENCOUNTER 2024-05-25 02:47 | Outpatient (CLI) | payer MEDICAID, SELFPAY ==
--- NOTE | 2024-05-25 12:15 | DI.MAMMO_ITS ---
Exam(s) MAMMO SCREENING EXAM: MAMMO SCREENING CLINICAL HISTORY: screening TECHNIQUE: Bilateral full field digital CC and MLO mammographic images were obtained with 3D tomosyn thesis and utilizing computer aided detection (CAD). COMPARISON: This is a baseline examination. FINDINGS: Masses/Architectural Distortion: There are several bilateral well-circumscribed nodules in both breas ts. The largest on the left is in the retroareolar region and measures 2.3 cm. The largest on the r ight is in the upper right breast appreciated on the MLO view and measures 1 cm. There are no areas of architectural distortion. Microcalcifications: No suspicious pleomorphic-type are seen. Skin Thickening/Nipple Retraction: None. IMPRESSION: 1. Bilateral breast nodules on this baseline examination. 2. Complete bilateral breast ultrasound are requested for further evaluation. BI-RADS Category 0 - Incomplete: Need additional imaging evaluation Breast Density - Category C - Heterogeneously dense Breast density category C or D implies that the patient has dense breast tissue. Dense breast tissue is very common and is not abnormal but dense breast tissue can make it harder to find cancer on a ma mmogram. Also, dense breast tissue may increase their breast cancer risk. This information about the result of the mammogram report was provided to the patient to raise their awareness. Use this report when you speak with the patient about their risks for breast cancer, which includes their family hist ory. At that time, you may recommend for more screening tests (Ultrasound or MRI) as they might be us eful based on their risk. A negative radiographic report should not delay biopsy if a dominant or clinically suspicious mass is present. Up to ten percent of cancers are not identified on mammography. A negative report may reinforce clinical impression. Adenosis and dense breasts may obscure an underlying neoplasm. False positive reports average 6 to 10%. Patient will receive a letter notifying them of these results.
== END 2024-05-25 03:07 ==
LOC: DI 02:47
PROVIDERS: PCP Family Medicine; Visit Provider Nurse Practitioner Women's Health
DX: Z12.31 Encounter for screening mammogram for malignant neoplasm of breast (principal); N77.1 Vaginitis, vulvitis and vulvovaginitis in diseases classified elsewhere; R92.333 Mammographic heterogeneous density, bilateral breasts
CPT/HCPCS: 77063; 77067

== ENCOUNTER 2024-05-25 04:58 | Outpatient (CLI) | payer MEDICAID, SELFPAY ==
[2024-05-25 21:09] LABS: HIV-1/2 Ag & Ab Screen Negative (Negative)
[2024-05-25 21:23] LABS: Hepatitis C Ab w Rflx HCV PCR Negative (Negative)
[2024-05-28 14:34] LABS: Syphilis IgG w/Reflex Nonreactive (Nonreactive)
== END 2024-05-25 04:59 | disposition home or self-care (01) ==
LOC: LBO 04:58
PROVIDERS: PCP Family Medicine; Visit Provider Nurse Practitioner Women's Health
DX: Z11.3 Encounter for screening for infections with a predominantly sexual mode of transmission (principal); N77.1 Vaginitis, vulvitis and vulvovaginitis in diseases classified elsewhere
CPT/HCPCS: 36415; 86803; 87389; 86780

== ENCOUNTER 2024-05-29 02:02 | Outpatient (CLI) | payer MEDICAID, SELFPAY ==
--- NOTE | 2024-05-29 | DI.US_ITS ---
Exam(s) US BREAST LT COMPLETE US BREAST RT COMPLETE EXAM: US BREAST RT COMPLETE CLINICAL HISTORY: F/U MAMMO, BILAT BREAST NODULES,R92.8 TECHNIQUE: Complete bilateral breast ultrasound performed using standard protocol. COMPARISON: MG MG MAMMO SCREENING from 05/25/2024 US US BREAST LT COMPLETE from 05/29/2024 FINDINGS: Right breast: 2 adjacent cysts in the 12 o'clock position 3 cm from the nipple, measuring 1.3 and 1.2 cm in largest dimension respectively. 7 x 3 x 4 meter proteinaceous cyst versus fibroadenoma once o 'clock position 4 cm from nipple. 5 millimeter proteinaceous cyst versus fibroadenoma 10 o'clock pos ition 2 cm from the nipple. Other smaller cysts noted. Left breast: 19 x 18 x 7 millimeter solid, circumscribed hypoechoic nodule in the 5 o'clock position 2 cm from the nipple has the appearance of a fibroadenoma. A 5 millimeter diameter proteinaceous cys t versus fibroadenoma 3 o'clock position 4 cm from the nipple. 16 millimeter cyst 3 o'clock position , 6 cm from the nipple. Smaller fibroadenoma 2 o'clock position 4 cm from the nipple measuring 9 x 4 x 5 millimeters. No ductal dilatation, hypoechoic foci, areas of abnormal shadowing, or areas of skin thickening in ei ther breast. 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 Six-month follow-up ultrasound recommended. Other small fibroadenomas v ersus proteinaceous cysts are noted bilaterally. BI-RADS Category 3 - 6 month - Probably Benign Finding: Recommend follow-up imaging in 6 months DATA REPOSITORY:
== END 2024-05-29 02:22 ==
LOC: DI 02:02
PROVIDERS: PCP Family Medicine; Visit Provider Nurse Practitioner Women's Health
DX: N60.22 Fibroadenosis of left breast
CPT/HCPCS: 76642

== ENCOUNTER 2024-07-05 21:08 | Outpatient (REF) | payer MEDICAID, SELFPAY | END 2024-07-05 21:09 | disposition home or self-care (01) | LOC: LBN 21:08 | PROVIDERS: PCP Family Medicine; Visit Provider Physician Assistant Medical | DX: J02.9 Acute pharyngitis, unspecified (principal) | CPT/HCPCS: 87070 ==

== ENCOUNTER 2024-08-28 14:17 | Outpatient (REF) | payer MEDICAID, SELFPAY | END 2024-08-28 14:18 | disposition home or self-care (01) | LOC: LBN 14:17 | PROVIDERS: PCP Family Medicine; Visit Provider Nurse Practitioner Women's Health | DX: N76.0 Acute vaginitis (principal); R30.0 Dysuria | CPT/HCPCS: 87077; 87086; 87186; 87480; 87510; 87660 ==

== ENCOUNTER 2024-09-15 13:28 | Outpatient (CLI) | payer MEDICAID, SELFPAY ==
--- NOTE | 2024-09-15 12:00 | DI.RAD_ITS ---
Exam(s) XR SHOULDER RT COMPLETE 2+V EXAM: XR SHOULDER RT COMPLETE 2+V CLINICAL HISTORY: M25.511 Pain RT Shoulder, Loss of ROM. TECHNIQUE: 2D digital imaging was performed of the right shoulder. Four images were obtained. AP, Grashey and Y views were obtained. COMPARISON: CR,XR XR SHOULDER LT COMPLETE 2+V from 11/14/2023 FINDINGS: BONES: No acute fracture is present. No bony destructive lesion is seen. JOINTS: No dislocation present. There are postsurgical changes partially visualized in the cervical s pine. The glenohumeral and acromioclavicular joints are well maintained. SOFT TISSUE: Normal. IMPRESSION: Unremarkable radiographs of the right shoulder. DATA REPOSITORY: RADIATION DOSE DELIVERED:
== END 2024-09-15 13:48 ==
LOC: DI 13:28
PROVIDERS: PCP Family Medicine; Visit Provider Family Medicine
DX: M25.511 Pain in right shoulder (principal)
CPT/HCPCS: 73030

== ENCOUNTER 2024-11-02 10:10 | Outpatient (CLI) | payer MEDICAID, SELFPAY ==
--- NOTE | 2024-11-02 07:30 | DI.MRI_ITS ---
Exam(s) MR IAC BRAIN WO/W EXAM: MR IAC BRAIN WO/W CLINICAL HISTORY: sudden asymmetrical sensorineural hearing loss H90.3 BILAT HEARING LOSS. TECHNIQUE: Multiplanar multisequence MRI of the brain and internal auditory canals was performed. CONTRAST MATERIAL: IV Contrast: 12 mL of Dotarem contrast administered. COMPARISON: No exams were available for comparison FINDINGS: VENTRICLES AND EXTRA AXIAL SPACES: Normal in size and morphology for the patient's age. HEMORRHAGE: None. CEREBRAL PARENCHYMA: No focus of restricted diffusion to suggest acute infarct. No space-occupying lesion identified. MIDLINE SHIFT: None. BRAINSTEM/CEREBELLUM: Normal. CALVARIUM: Normal. ENHANCEMENT: No suspicious enhancement identified. VISUALIZED PARANASAL SINUSES/MASTOIDS: Clear. [place] OF WEBB: Normal flow void. PITUITARY GLAND: Unremarkable. IAC/CP ANGLE: The internal auditory canals are within normal limits. The cerebellar pontine angles are unremarkable. No enhancing lesions are seen. Visualized portion of the facial nerves appear within normal limits. OTHER FINDINGS: None. IMPRESSION: Unremarkable MRI of the brain and internal auditory canals. DATA REPOSITORY:
[2024-11-02] MEDS: Gadoterate meglumine 20 ML SYRINGE 12 ML IVP (08:45)
[2024-11-02] MEDS: Normal Saline Flush 10 ML SYR IVP (08:46)
== END 2024-11-02 10:30 ==
LOC: DI 10:11
PROVIDERS: PCP Family Medicine; Visit Provider Registered Nurse Maternal Newborn
DX: H90.3 Sensorineural hearing loss, bilateral (principal)
CPT/HCPCS: 70553

== ENCOUNTER 2024-11-27 02:12 | Outpatient (CLI) | payer MEDICAID, SELFPAY ==
--- NOTE | 2024-11-27 07:15 | DI.US_ITS ---
Exam(s) US BREAST LT COMPLETE EXAM: US BREAST LT COMPLETE CLINICAL HISTORY: 6 month f/u,R92.8,ABNL MAMMO, CYST VS FIBROADENOMA TECHNIQUE: Ultrasound left breast performed using standard protocol. All 4 quadrants of the left breast were evaluated sonographically in addition to the retroareolar region and the axilla. COMPARISON: US US BREAST LT COMPLETE from 05/29/2024 FINDINGS: The ovoid slightly hypoechoic lesion at the 5 o'clock position of the left breast 2 cm from the nipple appears stable and measures 1.9 cm. This likely reflects a fibroadenoma. There are several cysts seen in the left breast. The largest measures 1.4 x 0.5 x 1.5 cm and is located at the 2 o'clock position 3 cm from the nipple. Well-circumscribed hypoechoic lesions are seen in the left breast and appears stable compared to the prior examination. These may represent hemorrhagic cysts or possibly small benign lesions such as fibroadenomas. No new left breast lesions are seen. No suspicious lesions are present. IMPRESSION: 1. Stable 2 cm hypoechoic lesion at the 5 o'clock position 2 cm from the nipple. This likely reflects a fibroadenoma. 2. No new or suspicious cystic or solid lesions are seen in the left breast. 3. Findings were discussed with the patient on the date of the examination. 4. A six-month follow-up left breast ultrasound is requested for re-evaluation. BI-RADS Category 3 - 6 month - Probably Benign Finding: Recommend follow-up imaging in 6 months DATA REPOSITORY:
--- NOTE | 2024-11-27 07:15 | DI.US_ITS ---
Exam(s) US BREAST RT COMPLETE EXAM: US BREAST RT COMPLETE CLINICAL HISTORY: 6 month f/u,R92.8,ABNL MAMMO,CYSTS VS FIBROADENOMAS TECHNIQUE: Ultrasound right breast performed using standard protocol. A complete right breast ultrasound was performed. All 4 quadrants of the right breast were evaluated sonographically in addition to the retroareolar region and right axilla. COMPARISON: US US BREAST RT COMPLETE from 05/29/2024 FINDINGS: There again seen multiple simple right breast cysts. The largest is at the 12 o'clock position of the right breast 3 cm from the nipple and measures 1.5 x 1.3 x 0.8 cm. No suspicious cysts are seen. At the 9 o'clock position of the right breast 4 cm from the nipple there again seen 2 well-circumscribed hypoechoic nodules present. These may represent hemorrhagic cysts. Benign solid lesion such as fibroadenomas cannot be excluded. The larger measures 0.5 x 0.4 x 0.5 cm. The smaller measures 0.3 cm. These appears stable. No suspicious cystic or solid masses are seen in the right breast. IMPRESSION: 1. Stable simple cysts in the right breast. 2. Hypoechoic lesions again seen at the 9 o'clock position. These may represent hemorrhagic cysts or benign lesion such as fibroadenomas. They appear stable. 3. No suspicious cystic or solid lesions are seen in the right breast. 4. A six-month follow-up right mammogram is requested for re-evaluation. 5. Findings were discussed with the patient on the date of the examination. BI-RADS Category 3 - 6 month - Probably Benign Finding: Recommend follow-up imaging in 6 months DATA REPOSITORY:
== END 2024-11-27 02:32 ==
LOC: DI 02:12
PROVIDERS: PCP Family Medicine; Visit Provider Nurse Practitioner Women's Health
DX: N63.23 Unspecified lump in the left breast, lower outer quadrant (principal)
CPT/HCPCS: 76642

== ENCOUNTER 2024-12-18 18:16 | Emergency (ER) | payer MEDICAID, SELFPAY ==
[2024-12-18 18:20] VITALS: BP 134/86; PULSE 83; RESP 16; TEMP 36.6; O2SAT 98
[2024-12-18 18:24] VITALS: BP 134/86; PULSE 83; RESP 16; TEMP 36.6; O2SAT 98
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
[2024-12-18] MEDS: Dexamethasone 4 MG/ML VIAL IVP (20:06)
[2024-12-18] MEDS: Normal Saline 500 ML 1000 ML IV (20:06)
[2024-12-18] MEDS: diphenhydrAMINE 50 MG/ML VIAL 25 MG IVP (20:06)
[2024-12-18] MEDS: Metoclopramide 10 MG/2 ML VIAL IVP (20:07)
[2024-12-18 20:35] VITALS: BP 130/78; PULSE 80; RESP 16; O2SAT 98
== END 2024-12-18 20:39 | disposition home or self-care (01) ==
PROVIDERS: Emergency Provider Nurse Practitioner Family; PCP Family Medicine
DX: G43.909 Migraine, unspecified, not intractable, without status migrainosus (principal)
CPT/HCPCS: 36415; 96374; 96375; 99284; 99283; J1100; J1200; J2765

== ENCOUNTER 2024-12-19 09:06 | Outpatient (CLI) | payer MEDICAID, SELFPAY ==
[2024-12-19 10:29] LABS: Abs Immature Grans 0.08 10^3/uL (0.0-0.06); HCT 31.9 % (36.0-46.0); HGB 9.9 g/dL (11.2-15.7); Immature Grans % 0.5 %; MCH 26.2 pg (27.0-33.0); MCHC 31.0 % (32.0-36.0); MCV 84 fL (80-95); MPV 9.0 fL (8.0-11.0); Platelet Count 498 10^3/uL (130-400); RBC 3.78 10^6/uL (3.93-5.22); RDW 15.2 % (11.7-14.6); RDW-SD 46.8 fL; WBC 15.56 10^3/uL (4.4-10.8)
[2024-12-19 10:41] LABS: INR 1.0 (0.9-1.1); PTT Activated 23.8 sec (20.6-30.2); Prothrombin Time 10.0 sec (9.1-11.1)
[2024-12-19 11:19] LABS: Anion Gap 11.2 mmol/L (3-11); BUN 12 mg/dL (7-18); CO2 25.8 mmol/L (21.0-32.0); Calcium 9.0 mg/dL (8.5-10.1); Chloride 101 mmol/L (98-107); Estimated GFR 109.30 (mL/min/1.73m2); Glucose 151 mg/dL (74-106); Potassium 3.7 mmol/L (3.5-5.1); Sodium 138 mmol/L (136-145)
[2024-12-19 11:20] LABS: HCG Quant, Pregnancy < 1 mIU/mL (1-3)
== END 2024-12-19 09:07 | disposition home or self-care (01) ==
PROVIDERS: PCP Family Medicine; Visit Provider Neurological Surgery
DX: M48.02 Spinal stenosis, cervical region (principal); G99.2 Myelopathy in diseases classified elsewhere
CPT/HCPCS: 36415; 80048; 84702; 84703; 85025; 85610; 85730

== ENCOUNTER 2024-12-19 13:18 | Outpatient (REF) | payer MEDICAID, SELFPAY | END 2024-12-19 13:19 | disposition home or self-care (01) | LOC: LBN 13:18 | PROVIDERS: PCP Family Medicine; Visit Provider Family Medicine | DX: D72.829 Elevated white blood cell count, unspecified (principal) | CPT/HCPCS: 87086 ==

== ENCOUNTER 2025-03-28 14:06 | Emergency (ER) | payer MEDICAID, SELFPAY ==
[2025-03-28 14:19] VITALS: BP 131/89; PULSE 96; RESP 20; TEMP 36.4; O2SAT 96
[2025-03-28 14:31] VITALS: BP 112/77; PULSE 97; RESP 20; TEMP 36.9; O2SAT 98
--- NOTE | 2025-03-28 15:15 | DI.RAD_ITS ---
Exam(s) XR CHEST 2V PA LATERAL EXAM: XR CHEST 2V PA LATERAL CLINICAL HISTORY: Cough TECHNIQUE: 2D digital imaging was performed. Two views. COMPARISON: CR,XR XR CHEST 2V PA LATERAL from 04/27/2022 FINDINGS: HEART: Normal size. Aorta: Not dilated. PULMONARY VASCULATURE: Normal. MEDIASTINUM: Unremarkable. LUNGS: Clear. PLEURAL SPACE: No pleural effusion or pneumothorax. BONE:Unremarkable for age. SOFT TISSUES: Unremarkable. IMPRESSION: No acute abnormality. DATA REPOSITORY: RADIATION DOSE DELIVERED:
[2025-03-28] MEDS: Acetaminophen 500 MG TAB 1000 MG PO (15:38)
[2025-03-28 16:24] VITALS: BP 112/77; PULSE 97; RESP 20; TEMP 36.9; O2SAT 98
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
== END 2025-03-28 16:25 | disposition home or self-care (01) ==
PROVIDERS: Emergency Provider General Practice; PCP Family Medicine
DX: R05.9 Cough, unspecified (principal); S30.11XA Contusion of abdominal wall, initial encounter; W19.XXXA Unspecified fall, initial encounter
CPT/HCPCS: 99283 ×2; 71046